=== PATIENT | female | born 1950 | race Caucasian/White ===

== ENCOUNTER 2024-09-09 13:10 | Outpatient (AMB) | payer MEDICARE, SELFPAY ==
--- NOTE | 2024-09-09 13:12 | A.OFFPC_ITS ---
Vital Signs 09/09/24 13:22 Height 5 ft 1.42 in Weight 176 lb 4 oz BMI 32.8 BP 122/70 Blood Pressure Location Lt brachial Position Sitting Respiration 12 Pulse 76 Pulse Source Pulse Oximeter Temp 97.2 F Temp Source Oral Pulse Oximetry (%) 99 Oxygen Delivery Method Room Air Intake Visit Reasons: CPE Intake Note: New patient to establish care Dispatcher Ship Pilot Required: Yes Dispatcher Ship Pilot Language: [place] Dispatcher Ship Pilot Name: leisa sprague [id number] Allergies No Known Allergies Allergy (Verified 09/09/24 13:34) Medication List - Last Reconciled 09/09/24 by Lianna Price, PRICING SPECIALIST- apixaban (Eliquis) 5 mg PO BID chlorthalidone 25 mg PO DAILY diltiazem HCl 30 mg PO TID levothyroxine 100 mcg PO DAILY lisinopril 20 mg PO DAILY metoprolol succinate ER 100 mg PO DAILY rosuvastatin 20 mg PO BEDTIME Tobacco use date assessed: 09/09/24 Last assessed Fall Risk: 09/09/24 Dental Screening Dental Screen Date: 09/09/24 Did you have a dental visit in the last 12 months?: Yes Did you have a dental problem in the last 6 months where you did not have access to dental care?: No Was dental information given to patient?: Patient has dentist HPI HPI Comments History of Present Illness Details 73 y/o Cape [place]dean speaking F with HTN, H LD, Hypothyroid s/p thyroidectomy d/t thyroid ca (2007) Health Maintenance: Colon Mammo DEXA PAP Tdap Specialists: [facility] - endo thyroid ca [place] Dispatcher Ship Pilot Used: Here today to est care Previous PCP: Dr Rainey No records avail Unfortunatley, she is not a good historian. SHe was hoping i would have her records and know what to do for her. She mentions needing to see a special nurse - but not sure what kind.? cardio - but she is not sure. We have requested the records and have not rec'd anything. Advised her to go to her old PCP and get them and bring them to me to review. In the meantime, i was able to review her meds. Confirm she does not need refills. She has plenty of her meds. She does have a hx of thyroid ca, s/p thyroidectomy done in 2007. Currently ma naged by [facility].Next appt 11/2024. Exam: Awake alert NAD RRR LS CTAB No edema BLE, skin intact Plan: Get records Labs today to est baseline Enroll in the patient portal Cont all meds RTO in 6-8 weeks to est care, sooner PRN Total time spent caring for the patient today was 45 minutes. This includes time spent before the visit reviewing the chart, time spent during the visit, and time spent after the visit on documentation, reviewing laboratory results, diagnostic imaging, medications, performing a medically necessary evaluation, counseling on diagnoses, care coordination, ordering appropriate tests, ordering appropriate medications, review of tests performed by other providers, reporting test results with the patient, communication with other healthcare providers. [facility] Medical History (Updated 09/09/24 @ 13:42 by YOLANDA Friedman) No pertinent family history No pertinent past medical history Surgical History (Updated 09/09/24 @ 13:42 by YOLANDA Friedman) No pertinent past surgical history S/P thyroidectomy (2017) Social History (Updated 09/09/24 @ 13:27 by Charles Gamez MA) Household Members: Spouse Both parents involved: No Caregiver staying overnight: No Housing: House Are you a primary career technical education instructor to a significant other at home: No Do you presently have visiting nurse or other home services: No 75 years or older and lives alone: No Alcohol intake: never Patient Tobacco Use Status: Never used Tobacco e-Cigarette/Vaping Use: Never Used Current occupational status: retired Cognitive needs: No Hearing needs: No Vision needs: No Questionnaire PHQ-9 Over the last 2 weeks, how often have you been bothered by any of the following problems? 1. Little interest or pleasure in doing things: not at all 2. Feeling down, depressed, or hopeless: not at all 3. Trouble falling or staying asleep, or sleeping too much: not at all 4. Feeling tired or having little energy: several days 5. Poor appetite or overeating: not at all 6. Feeling bad about yourself - or that you are a failure or have let yourself or your family down: not at all 7. Trouble concentrating on things, such as reading the newspaper or watching television: not at all 8. Moving or speaking so slowly that other people could have noticed. Or the opposite - being so fidgety or restless that you have been moving around a lot more than usual: not at all 9. Thoughts that you would be better off or of hurting yourself in some way: not at all Total score: 1 Depression Screening Interpretation: Negative Depression Screening Done: Yes 77802 - PHQ-9 Billing: Yes Source: Developed by Drs. Mir Maria, Monica Nickerson, Rohith Stuart and colleagues, with an educational kailey from [employer] software. Thrive Questionnaire Date Thrive assessed: 09/09/24 I am a: Patient What is your living situation today?: I have a steady place to live Within the past 12 months, did the food you bought not last and you didn't have the money to get more?: I choose not to answer this question Within the past 12 months, did you worry whether your food would run out before you got money to buy more?: I choose not to answer this question Do you have trouble paying for medicines?: I choose not to answer this question Do you have trouble getting transportation to medical appointments?: No Do you have trouble paying your heating and electricity bill?: No Do you have trouble taking care of your child, family member or friend?: No Do you have trouble with day-to-day activities such as bathing, preparing meals, shopping, managing finances, etc.?: No Are you currently unemployed and looking for a job?: No Are you interested in more education?: No Please select the resources that you would like help with: None Currently or been in a relationship where the following occur: No concerns reported THRIVE Score: 0 AUDIT C Alcohol Use Questionnaire (AUDIT-C) 1. How often do you have a drink containing alcohol?: Never 3. How often do you have six or more drinks on one occasion?: Never Total Score: 0 Score Reviewed/Action Taken: Yes KI-7 AMB Questionnaire KI-7 Date KI - 7 assessed: 09/09/24 Feeling nervous, anxious, or on edge: 0 = Not at all Not being able to stop or control worryin = Not at all Worrying too much about different things: 0 = Not at all Trouble relaxin = Not at all Being so restless that it is hard to sit still: 0 = Not at all Becoming easily annoyed or irritable: 0 = Not at all Feeling afraid as if something awful might happen: 0 = Not at all Total KI-7 score (0-4 normal; 5-9 mild; 10-14 moderate; 15-21 severe): 0 Source: Developed by Drs. Mir Maria, Monica Nickerson, Rohith Stuart and colleagues, with an educational kailey from [employer] software. KI-7 Assessment Billing KI-7 Assessment Tool: KI-7 Assessment 51597 Physical exam (Primary Care) Vital Signs: Last Vital Signs Temp 97.2 F 09/09/24 13:22 Pulse 76 09/09/24 13:22 Resp 12 09/09/24 13:22 BP 122/70 09/09/24 13:22 Pulse Ox 99 09/09/24 13:22 Oxygen Delivery Method Room Air 09/09/24 13:22 BMI result Body Mass Index 32.8 BMI Assessment/Plan discussion: High BMI High, discussed plan: lifestyle Tobacco/Smoking Status: Tobacco use Status Tobacco use date assessed 09/09/24 09/09/24 13:15 Patient Tobacco Use Status Never used Tobacco 09/09/24 13:27 e-Cigarette/Vaping Use Never Used 09/09/24 13:27 PHQ-9: PHQ-9 Score PHQ-9: Total score 1 09/09/24 13:23 Depression Screening Interpretation: Negative Thrive Assessment: Date of Thrive Assessment Date Thrive assessed 09/09/24 09/09/24 13:15 Currently or been in a relationship where the following occur: No concerns reported Coding Level of Care Code New Pt Level 4 (91511) Complex EM visit Add On G2211 Diagnoses Encounter to establish care Z76.89 Mixed hyperlipidemia E78.2 Hyperlipidemia type: mixed hyperlipidemia Acquired hypothyroidism E03.9 Hypothyroidism type: acquired Primary hypertension I10 Hypertension type: primary hypertension Obesity (BMI 30-39.9) E66.9 S/P thyroidectomy Z98.890; Z90.89 History of thyroid cancer Z85.850 Additional Codes KI-7 Assessment Billing - KI-7 Assessment Tool: KI-7 Assessment 07021 ([id number]) PHQ-9 - 44381 - PHQ-9 Billing: Yes ([id number]) Assessment & Plan Assessment & Plan (1) Encounter to establish care: Code(s): Z76.89 - Persons encountering health services in other specified circumstances (2) HLD (hyperlipidemia): Code(s): E78.5 - Hyperlipidemia, unspecified Category: Medical Qualifiers: Hyperlipidemia type: mixed hyperlipidemia Qualified Code(s): E78.2 - Mixed hyperlipidemia (3) Hypothyroid: Code(s): E03.9 - Hypothyroidism, unspecified Category: Medical Qualifiers: Hypothyroidism type: acquired Qualified Code(s): E03.9 - Hypothyroidism, unspecified (4) HTN (hypertension): Code(s): I10 - Essential (primary) hypertension Category: Medical Qualifiers: Hypertension type: primary hypertension Qualified Code(s): I10 - Essential (primary) hypertension (5) Obesity (BMI 30-39.9): Code(s): E66.9 - Obesity, unspecified Category: Medical (6) S/P thyroidectomy: Onset Date: 2016 Code(s): Z98.890 - Other specified postprocedural states; Z90.89 - Acquired absence of other organs Category: Surgical (7) History of thyroid cancer: Comment: managed by [facility] next visit 11/2024 Code(s): Z85.850 - Personal history of malignant neoplasm of thyroid Category: Medical Plan . Orders: Orders Complete Blood Count no Diff Today E03.9 - Hypothyroidism, unspecified, E78.2 - Mixed hyperlipidemia, I10 - Essential (primary) hypertension Lipid Panel Today E03.9 - Hypothyroidism, unspecified, E78.2 - Mixed hyperlipidemia, I10 - Essential (primary) hypertension TSH reflex Free T4 Today E03.9 - Hypothyroidism, unspecified, E78.2 - Mixed hyperlipidemia, I10 - Essential (primary) hypertension Comprehensive Met. Panel Today E03.9 - Hypothyroidism, unspecified, E78.2 - Mixed hyperlipidemia, I10 - Essential (primary) hypertension Hemoglobin A1c Today E03.9 - Hypothyroidism, unspecified, E78.2 - Mixed hyperlipidemia, I10 - Essential (primary) hypertension Microalbumin, Random (w Creat) Today E03.9 - Hypothyroidism, unspecified, E78.2 - Mixed hyperlipidemia, I10 - Essential (primary) hypertension Vitamin B12 and Folate Today E03.9 - Hypothyroidism, unspecified, E78.2 - Mixed hyperlipidemia, I10 - Essential (primary) hypertension Vitamin D 25-OH Total Today E03.9 - Hypothyroidism, unspecified, E78.2 - Mixed hyperlipidemia, I10 - Essential (primary) hypertension Medications: New diltiazem HCl 30 mg PO TID PRN Patient Instructions: Get records Labs today to est baseline Enroll in the patient portal Cont all meds RTO in 6-8 weeks to est care, sooner PRN Walk-In Care (Urgent Care): We Make it Easy Walk-in for urgent medical issues such as: ? Seasonal Allergies ? Insect Bites ? Cough ? Diarrhea ? Acute Asthma Attacks ? Back, Knee or Joint Pain ? Ear Infection ? Fever without a Rash ? Headaches ? Nausea ? [place] Eye, Rash or Skin Irritation ? Sore Throat ? Sports Physicals ? Vomiting Most insurances are accepted. Patients do not need to be part of the [facility] to seek care at the walk-in clinic. Locations [facility] [place] [address] ? [phone] [facility] Walk-In Care in [place] provides services to ages 18 and over. Open Friday-Friday: 8 a.m. to 5 p.m. and Friday: 9 a.m. to 3 p.m.* *Hours may vary due to staffing availability. To confirm Walk-In Care hours in [place], please call [phone]. [address] [place] [address] ? [phone] [facility] Walk-In Care in [place] provides services to ages 12 and over. Open Friday-Friday: 8 a.m. to 5 p.m. Hours may vary due to staffing availability. To confirm Walk-In Care hours in [place], please call [phone]. LABORATORY SERVICES: [facility] Lab ? Primary Location [address] [place] [address] Friday through Friday 6:00 AM ? 5:00 PM Friday 7:00 AM ? 11:00 AM* [phone] The [facility] Lab is centrally located near the front entrance of the [facility] for easy outpatient access. Convenient parking is provided for outpatients. *Hours may vary due to staffing availability. To confirm Laboratory hours for any location, please call [phone]. Offsite Location For your convenience, we offer offsite laboratory draw stations at the following locations: [address] [place] [address] [place] [address], [address], [place] Friday through Friday 7:30 AM ? 1:00 PM* [phone] *Hours may vary due to staffing availability. To confirm Laboratory hours for any location, please call [phone]. [place] ? [facility] [address] [facility] [place] Friday through Friday 6:00 AM ? 3:30 PM* Friday 6:30 AM ? 3 PM* [phone] *Hours may vary due to staffing availability. To confirm Laboratory hours for any location, please call [phone]. [address] [facility] Friday through Friday 7:30 AM ? 4:00 PM* [phone] *Hours may vary due to staffing availability. To confirm Laboratory hours for any location, please call [phone] [place] [address] Friday through 9:00 AM ? 4:00 PM* *Hours may vary due to staffing availability. To confirm Laboratory hours for any location, please call [phone]. Appointments are not necessary. Walk-ins are welcome. Like all the departments throughout the [facility], our Lab undergoes frequent reviews to ensure the quality and accuracy of test results, and our staff takes special pride in its status as a nationally accredited facility. Patient Portal: ONE PATIENT. ONE RECORD. BETTER CARE. [facility] has a fully integrated, cutting- edge mobile electronic health information system that has revolutionized the way we care for our patients and manage our organization. This system improves communication and coordination enabling us to provide safe, higher-quality care, and an overall positive experience for staff and patients. Our first priority, as always, is to deliver the highest quality care possible. The system is running in the background supporting that priority. This portal is for all [facility] services and practices. If you are experiencing any technical difficulties with enrolling or logging into the Patient Portal please complete the [facility] Patient Portal Technical Support Form. [facility] now offers a new secure on-line interactive tool for patients to review their health information ? ?Patient Portal. This interactive web portal will enable patients and their families to take an active role in their care by providing easy, secure access to their health information via the internet. The Patient Portal provides patients with instant access to their health information, including laboratory results, medications, allergies, demographic information, visit history, and more. In addition to managing their own care, parents and health care proxies with authorized consent will appreciate the ability to access the records of those individuals for whom they provide care. Please note: if you wish to gain access (Proxy) to another patient?s portal, you will be required to come to the Medical Records Department in person at [facility]. Both the patient giving proxy access and the proxy will need to provide photo identification and complete the appropriate authorization. The Patient Portal also allows track their appointments online. The [facility] Patient Portal also saves patients time by allowing them to submit updates to their demographic and contact information prior to their visits. Portal email notifications will also alert patients to any new activity on their portal, such as test results and new appointments. In order to initially enroll in the [facility] Patient Portal, you will need to enter some required information including the following: * your [facility] Medical Record number * your personal home email address * name * date of Please note: In order to enroll in the [facility] Patient Portal, we need to have your email address on file in your electronic medical record. ?The email address needs to be specific for one person (yourself) in order for your Portal enrollment to be successful. ?You can update your email address in person with our Registration staff when you are registering for a hospital visit. ?Otherwise, you will need to come to the Health Information Management (Medical Records) Department at [facility]. ?We are open from Friday ? Friday from 7:30 a.m. ? 4:30 p.m. ?You will be required to present a photo id. Once you have successfully enrolled in the Patient Portal, you will receive a one-time user id and password for the Portal, sent to your email address. ?This will allow you to log into the Patient Portal within 99 hrs and reset your own logon id and password, and define personal security questions. ?Once your permanent login and password have been set, you can log into the [facility] Patient Portal at any time via the blue button above or from the Portal Logon button on any page of the [facility] website. [facility] encourage all of our patients to enroll in Patient Portal as it presents a valuable opportunity for patients and their families to actively participate in their care and stay healthy Welcome to [facility]. ?We look forward to working with you.
[2024-09-09 13:22] VITALS: BP 122/70; PULSE 76; RESP 12; TEMP 36.2; O2SAT 99; BMI 32.8
== END 2024-09-09 13:51 | disposition home or self-care (01) ==
LOC: HO.HMCFM 13:11
PROVIDERS: PCP Nurse Practitioner Family; Visit Provider Nurse Practitioner Family
DX: E78.2 Mixed hyperlipidemia (principal); E03.9 Hypothyroidism, unspecified; E66.9 Obesity, unspecified; Z68.32 Body mass index [BMI] 32.0-32.9, adult; Z76.89 Persons encountering health services in other specified circumstances; I10 Essential (primary) hypertension; Z98.890 Other specified postprocedural states; Z90.89 Acquired absence of other organs; Z85.850 Personal history of malignant neoplasm of thyroid

== ENCOUNTER → 2024-09-09 13:10 | Outpatient (BNVA) | payer MEDICARE, SELFPAY | PROVIDERS: Visit Provider Nurse Practitioner Family | DX: Z13.89 Encounter for screening for other disorder (principal) | CPT/HCPCS: 96127; 99202 ==

== ENCOUNTER 2024-09-09 14:06 | Outpatient (REF) | payer MEDICARE, SELFPAY ==
[2024-09-09 18:07] LABS: Estimated Average Glucose 108 mg/dL; Hemoglobin A1c % 5.4 % (<6.0); Total Hemoglobin (HGBA1C) 3560.4116 umol/L
[2024-09-09 18:15] LABS: Hematocrit 39.3 % (37.0-47.0); Hemoglobin 13.3 g/dl (12.0-16.0); Mean Corpuscular HGB Conc 33.8 g/dl (31.0-35.0); Mean Corpuscular Hemoglobin 30.4 pg (27.0-33.0); Mean Corpuscular Volume 89.9 fL (80.0-98.0); Mean Platelet Volume 11.7 fL (9.4-12.3); Platelet Count 201 X10*3/uL (160-400); Red Blood Count 4.37 X10*6/uL (4.20-5.50); Red Cell Distribution Width 12.8 % (11.0-16.0); White Blood Count 6.5 X10*3/uL (4.8-10.8)
[2024-09-09 18:19] LABS: Alanine Aminotransferase 33 U/L (0-31); Albumin Level 4.3 g/dL (3.5-5.0); Alkaline Phosphatase 57 U/L (39-117); Anion Gap 11 (12-20); Aspartate Amino Transferase 19 U/L (5-31); Bilirubin Total 0.5 mg/dL (0.0-1.0); Blood Urea Nitrogen 19 mg/dL (9-16); Calcium 9.3 mg/dL (8.4-10.2); Carbon Dioxide 30 mmol/L (22-29); Chloride 104 mmol/L (96-108); Cholesterol 187 mg/dL (<200); Estimated Glomerular Filt Rate > 60; Glucose Random 108 mg/dL (60-115); HDL Cholesterol 48 mg/dL (>40); LDL Cholesterol Calculated 99 mg/dL (<100); Potassium 3.4 mmol/L (3.3-5.1); Sodium 142 mmol/L (135-145); Total Protein 6.7 g/dL (6.5-8.0); Triglycerides 204 mg/dL (<150)
[2024-09-09 18:27] LABS: Microalbumin Urine < 5.0 mg/L
[2024-09-09 18:34] LABS: Vitamin D 25-OH Total 41.8 ng/mL (>30)
[2024-09-09 18:46] LABS: Folate 11.4 ng/mL (> or = 4.0); Vitamin B12 749 pg/mL (200-900)
[2024-09-09 19:30] LABS: Free T4 (Free Thyroxine) 1.38 ng/dL (0.71-1.85)
== END 2024-09-09 14:07 | disposition home or self-care (01) ==
LOC: HO.WFDLDS 14:06
PROVIDERS: Visit Provider Nurse Practitioner Family
DX: I10 Essential (primary) hypertension (principal); E78.2 Mixed hyperlipidemia; E66.9 Obesity, unspecified; E89.0 Postprocedural hypothyroidism; Z90.89 Acquired absence of other organs; Z85.850 Personal history of malignant neoplasm of thyroid; Z13.1 Encounter for screening for diabetes mellitus; Z76.89 Persons encountering health services in other specified circumstances
CPT/HCPCS: 36415; 80053; 80061; 82306; 82570; 82607; 82746; 83036; 84439; 84443; 85027; 96127; 99202

== ENCOUNTER 2024-11-03 09:58 | Outpatient (AMB) | payer MEDICARE, SELFPAY ==
--- OUTSIDE RECORDS SUMMARY | 2024-02-05 06:30 | XMS_ITS | Continuity of Care Document ---
Author Organization [facility] Address [address] [place] [address] Phone Care Team Providers Care Policy Specialist Name Role Phone Danny BOTELLO, RVT, LISA, Mir Unavailable U navailable Allergies, Adverse Reactions, Alerts Substance Reaction Status Criticality No Known Allergies Active No Inform ation Procedures Procedure Date Office/Outpt E&M Established 15 Mins- CT & [place] Duplex Scan-extrem Veins; Uni/ CT & [place] O Duplex Scan-extrem Veins; Uni/ CT & [place] S Duplex Scan-extrem Veins; Uni/ CT & [place] S Inj Scleros Solut; Mx Veins 1- CT & [place] S Ultrason Guidan Needle Bx-rad- CT & [place] S Endovenous Rf, 1st Vein- CT & [place] 2023 Office/Outpt E&M Established 15 Mins-Tel emedicine CT & [place] Office/Oupt E&M New Pt 45 Mins- CT & [place] Duplex Scan-extrem Veins; Uni/ CT & [place] J Advance Directives Directive Yes / No Effective Date File Name Other Directive No N/A N/A WARNING:The information contained in this section is historical and is provided for information only and does not constitute a legal document or any assurance that the information is still accurate. Please verify the information with the shrestha of the legal document before using it for clinical purposes. Encounters Encounter Description Practice Location Reason(s) For Visit Diagnoses Date Provider Providers Copied on Encounter Office/Outpt E&M Established 15 Mins- CT & [place] [facility], [address] [place] [address] Dr Hood [address]Jennifer [place], [id number], [place] tel:[phone] [facility] Chronic venous hypertension (idiopathic) without complications of right lower extremity Oct- 4 Danny BOTELLO RVT, RPVI Robert. [address] [place] [address], [place], [place], [id number] , [place]. tel:[phone] Referring Provider: Ac Durant MD, [address] [place] [address], [id number]. tel:[phone] [facility], [address] [place] [address] Dr Hood [address]Jennifer [place], [id number], [place] tel:[phone] [facility] Chronic venous hypertension (idiopathic) with other complications of right lower extremity Oct- 4 Danny BOTELLO RVT, RPVI Robert. [address] [place] [address], [facility] [place] [place], [id number] , [place]. tel:[phone] Referring Provider: Ac Durant MD, [address] [place] [address], [id number]. tel:[phone] [facility]de [facility], [address] [place] [address] Dr Hood [address] Jennifer Evans [place], [id number], [place] [phone] [facility] Encounter for follow-up examination after completed treatment for conditions other than malignant nePain in right leg Dec- 4 Danny BOTELLO RVT, RPVI Robert. [address] [place] [address], [facility] [place] [place], [id number] , [place]. [phone] Referring Provider: Mir Delgado MD, RVT, RPVI, [address] [place] [address], [place], [id number] . tel:[phone] [facility]de [facility], [address] [place] [address] Dr Hood [address]Jennifer [place], [id number], [place] tel:[phone] [facility] Encounter for follow-up examination after completed treatment for conditions other than malignant neoplasmChronic venous hypertension (idiopathic) with other complications of right lower extremity Sep-0 4 Danny BOTELLO RVT, RPVI Robert. [address] [place] [address], [facility] [place], [id number] , [place]. [phone] Referring Provider: Ac Durant MD, [address] [place] [address], [id number]. tel:[phone] [facility], [address] [place] [address] [facility] [address]Jennifer [place], [id number], [place] [phone] [facility] Varicose veins of right lower extremity with other complications Sep-0 4 Ashley Burgos . [address] [place] [address], [facility] [place], [id number] , [place]. [phone] Referring Provider: Mir Delgado MD, RVT, LISA, [address] [place] [address], [facility] [place], [address] . tel:[phone] [facility], [address] [place] [address] Dr Hood [address]Jennifer [place], [id number], [place] tel:[phone] [facility] Varicose veins of right lower extremity with other complications Sep-0 4 Danny BOTELLO RVT, RPVI Robert. [address] [place] [address], [facility] [place] [place], [id number] , [place]. [phone] Office/Outpt E&M Established 15 Mins-[facility], [address] [place] [address] Dr Hood [address]Jennifer [place], [id number], [place] tel:[phone] [facility] - [facility] Chronic venous hypertension (idiopathic) with other complications of right lower extremityPrurit us, unspecifiedEsse ntial (primary) hypertension Aug-3 4 Danny BOTELLO RVT, RPVI Robert. [address] [place] [address], [facility] [place] [place], [id number] , [place]. tel:[phone] Office/Oupt E&M New Pt 45 Mins- CT & [place] [facility], [address] [place] [address] [address], [place] Jennifer, [id number], tel:[phone] [facility] Varicose veins of right lower extremity with other complications 4 Danny BOTELLO RVT, LISA Hester. [address] [place] [address], [place] hern[place], [id number] , [place]. [phone] [facility], [address] [place] [address] [address], [place] Jennifer, [id number], [place] tel:[phone] [facility] Varicose veins of right lower extremity with pain 4 Danny BOTELLO RVT, LISA Mir. [address] [place] [address], [place] hernandez [place], [id number] , . [phone] Referring Provider: Mir Delgado MD, FRANTZ, LISA, [address] [place] [address], [place], [id number] . tel:[phone] Family History Family Member Type Diagnosis Age At Onset No Information Payers Payer name Insurance type Covered alliance party ID Authoriza tion(s) Medicare LIEN RUIZ [id number] [facility] LIEN [id number] Social History Type Description Quantity Date Captured Comments Alcohol Use Details Unknown Caffeine Use Details Unknown Tobacco Use Status Current non-smoker Smoking Status Never Smoker Non-Smoking Tobacco Use Details : No Details Available : No Details Available Sex Female Chief Complaint And Reason For Visit No Information Reason For Referral Reason For Referral No Information Plan Of Treatment Date Type Action Status Goal Diet education completed Referral Ordered: Weight management: Referral to physician timeframe: 3 Months (related to Body mass index (BMI) 28.0-28.9, adult) ordered History Of Present Illness Encounter Date Complaint History Of Prese nt Illness No Information Functional Status Date Functional Assessmen t No Information Instructions Date Instruction Additional Infor mation Patient education booklet given Related to Chrn Vns Hypertnsn w/o Compl; RIGHT Patient education booklet given Related to Chronic venous hypertension (idiopathic) with other complications of right lower extremity Pre and post instruc tions reviewed and provided Related to Chronic venous hypertension (idiopathic) with other complications of right lower extremity Lifestyle education Related to B dwight mass index (BMI) 28.0-28.9, adult Patient education booklet given Related to Varicose veins of right lower extremity with other complications Pre and post instruc tions reviewed and provided Related to Varicose veins of right lower extremity with other complications Diet education Related to Body mass index (BMI) 28.0-28.9, adult Giving Encouragement to exercise Related to Body mass index (BMI) 28.0-28.9, adult Assessments Type Assessment Date assessment Chronic venous hyper tension (idiopathic) without complications of right lower extremity Patient Care Teams Name Effective Dates (start - stop) Status Members No Information
--- NOTE | 2024-11-03 10:06 | MHC.PC.OV ---
Vital Signs 11/03/24 10:10 Height 5 ft 1.42 in Weight 174 lb BMI 32.4 BP 132/72 Blood Pressure Location Lt brachial Position Sitting Respiration 13 Pulse 68 Pulse Source Pulse Oximeter Temp 97.6 F Temp Source Oral Pulse Oximetry (%) 97 Oxygen Delivery Method Room Air Intake Visit Reasons: 6-8 weeks, 30 min, est care after records reviewed Intake Note: Follow up. Patient c/o of growth on her chest painful to the touch. Legal Intern Required: No Allergies No Known Allergies Allergy (Verified 11/03/24 10:39) Medication List - Last Reconciled 11/03/24 by Lianna Price, WEIGHT LOSS COUNSELOR- apixaban (Eliquis) 5 mg PO BID chlorthalidone 25 mg PO DAILY diltiazem HCl 30 mg PO TID PRN levothyroxine 100 mcg PO DAILY lisinopril 20 mg PO DAILY metoprolol succinate ER 100 mg PO DAILY rosuvastatin 20 mg PO BEDTIME Tobacco use date assessed: 11/03/24 Fall risk assessment: No Falls in past year Last assessed Fall Risk: 11/03/24 Dental Screening Dental Screen Date: 11/03/24 Did you have a dental visit in the last 12 months?: Yes Did you have a dental problem in the last 6 months where you did not have access to dental care?: No Was dental information given to patient?: Patient has dentist HPI HPI Comments History of Present Illness Details 73 y/o Angolan speaking F with HTN, HLD, Hypothyroid s/p thyroidectomy d/t thyroid ca (2007), KI, PAF, BPPV, venous insuff Surgery: Thyroidectomy, varicose vein removal on R Family hx: Denies significant history Social: ; from [facility]. Health Maintenance: Colon 2025, [facility] [place] Mammo ordered today, last done [facility] [place] [facility]EXA [place]ordered today PAP NA Tdap 2016, PCV 13, 20 & SHINGLES UTD Echo 2024 70% EF, LVH, hyperdynamic Left ventricle Specialists: [facility] - endo thyroid ca next appt 11/26/2024 [facility], Dr Gallardo, Cards FU PRN [place] Legal Intern Used: Samir Colon History of Present Illness - The patient is a 73-year-old female presenting with routine follow-up for chronic conditions. - PCP records reviewed. - Past medical diagnoses: hypertension, hyperlipidemia, post-thyroidectomy hypothyroidism, atrial fibrillation, BPPV, generalized anxiety disorder. - On medication: Eliquis, chlorthalidone, diltiazem, levothyroxine, lisinopril, metoprolol, rosuvastatin. - Occasional palpitations noted; managed with cardiology care PRN - Occassional swelling of BLE, worse w/ heat. Manageable. - Anxiety previously treated with medication in the past, now controlled w/o meds - Routine lab work normal; cholesterol managed with medication. TSH low per history. 08/2024 Reviewed w her today. - C/o skin tags around neck bothersome. would like removed. aware cosmetic request. Review of Systems - Cardiovascular: Reports palpitations; denies ongoing tachycardia. - Endocrine: Denies fatigue or temperature intolerance. - Musculoskeletal: Reports right leg pain; denies swelling. - Psychological: Reports past anxiety related to travel. Physical Exam General: Well developed, well nourished, in no acute distress. Appears stated age. Head: Normocephalic, atraumatic. Eyes: Pupils are equal, round and reactive to light and accommodation. Conjunctivae are clear. Lungs: Clear to auscultation bilaterally. No rales, rhonchi or wheeze noted. Good air flow in all thomas. Heart: Regular rate and rhythm. No murmurs, click, rubs or gallops are noted. Musculoskeletal: Joints are nontender, without swelling, redness, or effusions. Pulses: Peripheral pulses are equal and palpable bilaterally. Extremities: Trace edema BLE, Varicose veins, No clubbing or cyanosis. Psych: Mood and affect appropriate. Results Labs 08/2024 WNL Discussion Notes I discussed with the patient the ongoing management of her chronic conditions, including the importance of medication adherence for blood pressure and cholesterol control. I emphasized the need for continued monitoring of her atrial fibrillation, including PRN cardiology check-ups. I recommended starting the referral process promptly for her colonoscopy due in 2025 to avoid scheduling delays. I highlighted the significance of coordinating mammogram and bone density records from external facilities for seamless continuity of care. Furthermore, I reviewed the general maintenance of her hypothyroidism with levothyroxine and addressed her anxiety management strategies, suggesting that she continue as is given her current stability. Consent for dermatological referral to remove skin tags was obtained with acknowledgment of the cosmetic nature and non-coverage by insurance. Assessment and Plan 1. Hypertension - Continue lisinopril and metoprolol. 2. Hyperlipidemia - Continue rosuvastatin. 3. Post-thyroidectomy Hypothyroidism - Continue levothyroxine. - [facility] 4. Atrial Fibrillation - Continue current regimen. 5. Benign Paroxysmal Positional Vertigo (BPPV) - Continue monitoring. 6. Generalized Anxiety Disorder - Managed w/o meds 7. Dermatological Concerns - Referral for skin tag removal provided. Colon referral placed Mammo/dexa ordered @ [facility] REquested reports. Patient Instructions - Take all medications as prescribed. - Schedule colonoscopy appointment for 2025. - Expect calls to schedule mammogram and bone density scans. - Monitor palpitations; avoid heat if exacerbations occur. - Follow-up with cardiology as advised. - Sign up for patient portal for easy communication and medication refill requests. - RTO June, soon PRN Consent Patient was informed and verbally consented to the use of an ambient scribe for clinic note documentation during this visit. Total time spent caring for the patient today was 45 minutes. This includes time spent before the visit reviewing the chart, time spent during the visit, and time spent after the visit on documentation, reviewing laboratory results, diagnostic imaging, medications, performing a medically necessary evaluation, counseling on diagnoses, care coordination, ordering appropriate tests, ordering appropriate medications, review of tests performed by other providers, reporting test results with the patient, communication with other healthcare providers. [facility] Medical History (Updated 11/03/24 @ 11:05 by BALTA Friedman-JACKELINE) No pertinent family history No pertinent past medical history Surgical History (Updated 11/03/24 @ 11:04 by BALTA Friedman-JACKELINE) History of colonoscopy History of varicose vein ligation No pertinent past surgical history S/P thyroidectomy (2017) Social History (Updated 09/09/24 @ 13:27 by Charles Gamez MA) Household Members: Spouse Both parents involved: No Caregiver staying overnight: No Housing: House Are you a primary reproductive healthcare assistant to a significant other at home: No Do you presently have visiting nurse or other home services: No 75 years or older and lives alone: No Alcohol intake: never Patient Tobacco Use Status: Never used Tobacco e-Cigarette/Vaping Use: Never Used Current occupational status: retired Cognitive needs: No Hearing needs: No Vision needs: No Questionnaire PHQ-9 Over the last 2 weeks, how often have you been bothered by any of the following problems? 1. Little interest or pleasure in doing things: not at all 2. Feeling down, depressed, or hopeless: not at all 3. Trouble falling or staying asleep, or sleeping too much: not at all 4. Feeling tired or having little energy: not at all 5. Poor appetite or overeating: not at all 6. Feeling bad about yourself - or that you are a failure or have let yourself or your family down: not at all 7. Trouble concentrating on things, such as reading the newspaper or watching television: not at all 8. Moving or speaking so slowly that other people could have noticed. Or the opposite - being so fidgety or restless that you have been moving around a lot more than usual: not at all 9. Thoughts that you would be better off or of hurting yourself in some way: not at all Total score: 0 Depression Screening Interpretation: Negative Depression Screening Done: Yes 69130 - PHQ-9 Billing: Yes Source: Developed by Drs. Mir Maria, Monica Nickerson, Rohith Stuart and colleagues, with an educational kailey from [employer]. Thrive Questionnaire Date Thrive assessed: 11/03/24 I am a: Patient What is your living situation today?: I have a steady place to live Within the past 12 months, did the food you bought not last and you didn't have the money to get more?: I choose not to answer this question Within the past 12 months, did you worry whether your food would run out before you got money to buy more?: I choose not to answer this question Do you have trouble paying for medicines?: I choose not to answer this question Do you have trouble getting transportation to medical appointments?: No Do you have trouble paying your heating and electricity bill?: No Do you have trouble taking care of your child, family member or friend?: No Do you have trouble with day-to-day activities such as bathing, preparing meals, shopping, managing finances, etc.?: No Are you currently unemployed and looking for a job?: No Are you interested in more education?: No Please select the resources that you would like help with: None Currently or been in a relationship where the following occur: No concerns reported THRIVE Score: 0 KI-7 AMB Questionnaire KI-7 Date KI - 7 assessed: 11/03/24 Feeling nervous, anxious, or on edge: 0 = Not at all Not being able to stop or control worryin = Not at all Worrying too much about different things: 0 = Not at all Trouble relaxin = Not at all Being so restless that it is hard to sit still: 0 = Not at all Becoming easily annoyed or irritable: 0 = Not at all Feeling afraid as if something awful might happen: 0 = Not at all Total KI-7 score (0-4 normal; 5-9 mild; 10-14 moderate; 15-21 severe): 0 Source: Developed by Drs. Mir Maria, Monica Nickerson, Rohith Stuart and colleagues, with an educational kailey from [employer]. KI-7 Assessment Billing KI-7 Assessment Tool: KI-7 Assessment 87978 Physical exam (Primary Care) Vital Signs: Last Vital Signs Temp 97.6 F 11/03/24 10:10 Pulse 68 11/03/24 10:10 Resp 13 11/03/24 10:10 BP 132/72 11/03/24 10:10 Pulse Ox 97 11/03/24 10:10 Oxygen Delivery Method Room Air 11/03/24 10:10 BMI result Body Mass Index 32.4 Tobacco/Smoking Status: Tobacco use Status Tobacco use date assessed 11/03/24 11/03/24 10:07 Patient Tobacco Use Status Never used Tobacco 11/03/24 10:07 e-Cigarette/Vaping Use Never Used 11/03/24 10:07 PHQ-9: PHQ-9 Score PHQ-9: Total score 0 11/03/24 10:26 Depression Screening Interpretation: Negative Thrive Assessment: Date of Thrive Assessment Date Thrive assessed 11/03/24 11/03/24 10:14 Currently or been in a relationship where the following occur: No concerns reported Coding Level of Care Code Est Pt Level 5 (91444) Complex EM visit Add On G2211 Diagnoses Skin tag L91.8 Primary hypertension I10 Hypertension type: primary hypertension Mixed hyperlipidemia E78.2 Hyperlipidemia type: mixed hyperlipidemia Acquired hypothyroidism E03.9 Hypothyroidism type: acquired PAF (paroxysmal atrial fibrillation) I48.0 Secondary hypercoagulable state D68.69 KI (generalized anxiety disorder) F41.1 Venous insufficiency I87.2 Benign paroxysmal positional vertigo due to bilateral vestibular disorder H81.13 Laterality: bilateral Additional Codes KI-7 Assessment Billing - KI-7 Assessment Tool: KI-7 Assessment 79142 ([id number]) PHQ-9 - 10530 - PHQ-9 Billing: Yes ([id number]) Assessment & Plan Assessment & Plan (1) Skin tag: Code(s): L91.8 - Other hypertrophic disorders of the skin Category: Medical (2) HTN (hypertension): Code(s): I10 - Essential (primary) hypertension Category: Medical Qualifiers: Hypertension type: primary hypertension Qualified Code(s): I10 - Essential (primary) hypertension (3) HLD (hyperlipidemia): Code(s): E78.5 - Hyperlipidemia, unspecified Category: Medical Qualifiers: Hyperlipidemia type: mixed hyperlipidemia Qualified Code(s): E78.2 - Mixed hyperlipidemia (4) Hypothyroid: Code(s): E03.9 - Hypothyroidism, unspecified Category: Medical Qualifiers: Hypothyroidism type: acquired Qualified Code(s): E03.9 - Hypothyroidism, unspecified (5) PAF (paroxysmal atrial fibrillation): Comment: ON JUVENCIO MULLER Code(s): I48.0 - Paroxysmal atrial fibrillation Category: Medical (6) Secondary hypercoagulable state: Comment: D/T AFIB, ON CULLEN Code(s): D68.69 - Other thrombophilia Category: Medical (7) KI (generalized anxiety disorder): Code(s): F41.1 - Generalized anxiety disorder Category: Medical (8) Venous insufficiency: Code(s): I87.2 - Venous insufficiency (chronic) (peripheral) Category: Medical (9) BPPV (benign paroxysmal positional vertigo): Comment: WENT TO VESTIBULAR THERAPY IN THE PAST Code(s): H81.10 - Benign paroxysmal vertigo, unspecified ear Category: Medical Qualifiers: Laterality: bilateral Qualified Code(s): H81.13 - Benign paroxysmal vertigo, bilateral Plan . Orders: Orders XR DEXA axial skeleton Today Z13.820 - Encounter for screening for osteoporosis MM tomosynthesis screening BI Today Z12.31 - Encounter for screening mammogram for malignant neoplasm of breast Referrals Gastroenterology Referral Z12.11 - Encounter for screening for malignant neoplasm of colon Dermatology Referral L91.8 - Other hypertrophic disorders of the skin
[2024-11-03 10:10] VITALS: BP 132/72; PULSE 68; RESP 13; TEMP 36.4; O2SAT 97; BMI 32.4
== END 2024-11-03 10:58 | disposition home or self-care (01) ==
LOC: HO.HMCFM 09:59
PROVIDERS: PCP Nurse Practitioner Family; Visit Provider Nurse Practitioner Family
DX: I48.0 Paroxysmal atrial fibrillation (principal); L91.8 Other hypertrophic disorders of the skin; I10 Essential (primary) hypertension; E78.2 Mixed hyperlipidemia; E03.9 Hypothyroidism, unspecified; D68.69 Other thrombophilia; F41.1 Generalized anxiety disorder; I87.2 Venous insufficiency (chronic) (peripheral); H81.13 Benign paroxysmal vertigo, bilateral

== ENCOUNTER → 2024-11-03 09:58 | Outpatient (BNVA) | payer MEDICARE, SELFPAY | PROVIDERS: PCP Nurse Practitioner Family; Visit Provider Nurse Practitioner Family | DX: L91.8 Other hypertrophic disorders of the skin (principal); I10 Essential (primary) hypertension; E78.2 Mixed hyperlipidemia; E03.9 Hypothyroidism, unspecified; I48.0 Paroxysmal atrial fibrillation; D68.69 Other thrombophilia; F41.1 Generalized anxiety disorder; I87.2 Venous insufficiency (chronic) (peripheral); H81.13 Benign paroxysmal vertigo, bilateral | CPT/HCPCS: 96127; 99212 ==